=== PATIENT | female | born 1990 | race Two or more races ===

== ENCOUNTER 2022-01-18 13:29 | Emergency (ER) | payer OTHER ==
[~2022-01-18] VITALS: Ht 162.6 cm; Wt 82.6 kg
== END 2022-01-18 18:06 | disposition home or self-care (01) ==
LOC: ER 13:29
DX: O20.9 Hemorrhage in early pregnancy, unspecified (principal); Z3A.01 Less than 8 weeks gestation of pregnancy; Z88.8 Allergy status to other drugs, medicaments and biological substances

== ENCOUNTER 2022-02-08 15:09 | Emergency (ER) | payer OTHER ==
[~2022-02-08] VITALS: Ht 162.6 cm; Wt 84.8 kg
== END 2022-02-08 18:31 | disposition home or self-care (01) ==
LOC: ER 15:09
DX: O46.91 Antepartum hemorrhage, unspecified, first trimester (principal); Z3A.09 9 weeks gestation of pregnancy

== ENCOUNTER 2022-02-26 05:45 | Day surgery (SDC) | payer OTHER ==
[~2022-02-26 05:45] MED LIST: PRENAT PO; PROMETRIUM200 MG PO
== END 2022-02-26 14:05 | disposition home or self-care (01) ==
LOC: CIR.AMB 05:45
PROVIDERS: ATTEND Specialist
DX: O34.31 Maternal care for cervical incompetence, first trimester (principal); Z3A.12 12 weeks gestation of pregnancy; Z88.2 Allergy status to sulfonamides; Z20.822 Contact with and (suspected) exposure to COVID-19

== ENCOUNTER 2022-03-13 22:45 | Emergency (ER) | payer OTHER ==
[~2022-03-13] VITALS: Ht 165.1 cm; Wt 76.7 kg
== END 2022-03-14 01:22 | disposition home or self-care (01) ==
LOC: ER 22:45
DX: O26.892 Other specified pregnancy related conditions, second trimester (principal); Z3A.14 14 weeks gestation of pregnancy; J00 Acute nasopharyngitis [common cold]; Z88.8 Allergy status to other drugs, medicaments and biological substances; Z20.822 Contact with and (suspected) exposure to COVID-19

== ENCOUNTER 2022-05-10 23:44 | Inpatient (IN) | payer OTHER ==
[~2022-05-10] VITALS: Ht 162.6 cm; Wt 88.5 kg
[2022-05-11] MEDS ORDERED: INDOMETHACIN50 MG PO (00:48)
[2022-05-11] MEDS ORDERED: NIFEDIPINE20 MG PO (00:51)
[2022-05-11] MEDS ORDERED: TERBUTALINE SUBCUTANEO (00:51)
[2022-05-11] MEDS ORDERED: PROMETRIUM200 MG VAG (00:52)
[2022-05-11] MEDS ORDERED: PRENATAL + DHA1 EAC1 (10:48)
== END 2022-05-13 19:21 | disposition home or self-care (01) | DRG 768 ==
LOC: LDR 23:44 → OB/GYN 05-11 13:39
PROVIDERS: ADMIT Specialist; ATTEND Specialist
PROC: 3E033VJ Introduction of Other Hormone into Peripheral Vein, Percutaneous Approach (ICD-10-PCS; 2022-05-10)
PROC: 4A1HXCZ Monitoring of Products of Conception, Cardiac Rate, External Approach (ICD-10-PCS; 2022-05-10)
PROC: 0UCC7ZZ Extirpation of Matter from Cervix, Via Natural or Artificial Opening (ICD-10-PCS; 2022-05-11)
PROC: 10D17Z9 Manual Extraction of Products of Conception, Retained, Via Natural or Artificial Opening (ICD-10-PCS; 2022-05-11)
PROC: 10E0XZZ Delivery of Products of Conception, External Approach (ICD-10-PCS; principal; 2022-05-11 03:15)
DX: O36.4XX0 Maternal care for intrauterine death, not applicable or unspecified (principal); Z37.1 Single stillbirth; O34.32 Maternal care for cervical incompetence, second trimester; O60.12X0 Preterm labor second trimester with preterm delivery second trimester, not applicable or unspecified; O41.1220 Chorioamnionitis, second trimester, not applicable or unspecified; O41.1420 Placentitis, second trimester, not applicable or unspecified; Z3A.22 22 weeks gestation of pregnancy; Z20.822 Contact with and (suspected) exposure to COVID-19

== ENCOUNTER 2023-12-15 11:12 | Outpatient (CLI) | payer OTHER ==
[~2023-12-15 11:12] MED LIST changes: +INDOMETHACIN50 MG PO; +NIFEDIPINE20 MG PO; +PRENATAL + DHA1 EAC1; +PROMETRIUM200 MG VAG; +TERBUTALINE SUBCUTANEO
== END 2023-12-15 11:17 | disposition home or self-care (01) ==
LOC: SONOGRAMA 11:12
PROVIDERS: ATTEND Pathology Anatomic Pathology & Clinical Pathology
DX: D34 Benign neoplasm of thyroid gland (principal); E04.1 Nontoxic single thyroid nodule